=== PATIENT | female | born 1985 ===

== ENCOUNTER 2021-03-14 21:34 | Emergency (ER) | payer OTHER, SELFPAY ==
--- NOTE | ~2021-03-14 | XR_ITS ---
EXAMINATION: XR CHEST CLINICAL INFORMATION: Shortness of breath. Dyspnea on exertion. COMPARISON: None TECHNIQUE: 2 views of the chest were obtained. FINDINGS: Normal cardiomediastinal silhouette. No effusions or pneumothoraces. Grossly normal pattern of pulmonary vasculature. No focal pulmonary consolidation. Minimal multilevel anterior endplate osteophytosis of the thoracic spine. Cardiac loop recorder device is noted in the parasagittal left thoracic region. XR/XR chest 2V IMPRESSION: -No acute cardiopulmonary abnormalities. Lungs clear. -Cardiac loop recorder in place.
[2021-03-14 22:02] VITALS: BP 150/95; PULSE 98; RESP 18; TEMP 36.6; O2SAT 97; BMI 39.4
[2021-03-14 22:23] LABS: MANUAL DIFF FLAG NO
[2021-03-14 22:29] LABS: Basophils Percent Auto 0.3 % (0-2); Eosinophils Absolute Auto 0.2 X10*3/uL (0.0-0.4); Eosinophils Percent Auto 1.3 % (0-4); Hematocrit 40.3 % (37.0-47.0); Hemoglobin 13.4 g/dl (12.0-16.0); Imm Gran Abs Auto 0.09 X10*3/uL (0.00-0.03); Imm Gran Pct Auto 0.8 % (0.0-0.4); Lymphocytes Absolute Auto 2.7 X10*3/uL (1.2-4.9); Lymphocytes Percent Auto 22.5 % (20-40); Mean Corpuscular HGB Conc 33.3 g/dl (31.0-35.0); Mean Corpuscular Hemoglobin 29.6 pg (27.0-33.0); Mean Corpuscular Volume 89.2 fL (80.0-98.0); Mean Platelet Volume 9.4 fL (9.4-12.3); Monocytes Absolute Auto 0.7 X10*3/uL (0.1-1.2); Neutrophils Absolute Auto 8.2 x10*3/uL (2.0-8.3); Neutrophils Percent Auto 69.1 % (45-73); Platelet Count 262 X10*3/uL (160-400); Red Blood Count 4.52 X10*6/uL (4.20-5.50); White Blood Count 11.9 X10*3/uL (4.8-10.8)
[2021-03-14 22:45] LABS: Alanine Aminotransferase 34 U/L (0-31); Albumin Level 4.3 g/dL (3.5-5.0); Alkaline Phosphatase 55 U/L (39-117); Anion Gap 11 (12-20); Aspartate Amino Transferase 17 U/L (5-31); Bilirubin Total 0.3 mg/dL (0.0-1.0); Blood Urea Nitrogen 20 mg/dL (9-16); Calcium 9.1 mg/dL (8.4-10.2); Carbon Dioxide 24 mmol/L (22-29); Chloride 108 mmol/L (96-108); Creatinine Clr Calc Pharmacy 103.8; Estimated Glomerular Filt Rate > 60; Glucose Random 102 mg/dL (60-115); Potassium 3.9 mmol/L (3.3-5.1); Sodium 139 mmol/L (135-145); Total Protein 6.8 g/dL (6.5-8.0)
[2021-03-14 23:04] LABS: Influenza A PCR NEGATIVE (Negative); Influenza B PCR NEGATIVE (Negative); Resp Syncy Virus RNA Qual PCR NEGATIVE (Negative); SARS COV2 PCR INHOUSE NEGATIVE (Negative)
[2021-03-14 23:19] LABS: D Dimer High Sensitivity < 150 NG/ML
--- NOTE | 2021-03-15 00:21 | ED.SOB ---
HPI - SOB/Dyspnea General Chief Complaint: Dyspnea Stated Complaint: ?blood clot Time Seen by Provider: 03/14/21 23:59 Source: patient Mode of arrival: ambulatory Limitations: no limitations History of Present Illness HPI Narrative: Patient comes to emergency room complaining of shortness of breath for 5 days. Patient states that usually she uses an inhaler and her shortness of breath quickly resolves. However, over the last 2 weeks she ran out of her albuterol. Patient states that today she used her daughter's inhaler to help with the shortness of breath, came to the hospital. Patient states that she has had COVID twice in 1 year, after the 2nd round of COVID, her lungs have not been the same. Patient denies chest pain, no tachycardia, no leg/calf pain. Related Data Previous Rx's Medication Instructions Recorded albuterol sulfate 90 mcg/actuation 2 puff INHALATION Q4-6H PRN #8.5 g 03/15/21 aerosol inhaler erythromycin 5 mg/gram (0.5 %) eye 1 appl OPHTHALMIC-RIGHT DAILY #1 g 03/15/21 ointment prednisone 50 mg tablet 50 mg PO DAILY #4 tab 03/15/21 Allergies Allergy/AdvReac Type Severity Reaction Status Date / Time No Known Allergies Allergy Unverified 03/14/21 23:59 Review of Systems Review of Systems: Constitutional : No Weight loss, No Fever, No Chills, No Night Sweats, No Fatigue, No Malaise ENT/Mouth : No Hearing loss, No Ear Pain, No Nasal Congestion, No Sinus Pain, No Hoarseness, No sore throat, No Rhinorrhea, No Swallowing Difficulty Eyes: No Eye Pain, No Swelling, No Redness, No Foreign Body, No Discharge, No Vision Changes Cardiovascular : No Chest Pain, No SOB, No Dyspnea on Exertion, No Orthopnea, No Edema, No Palpitations Respiratory : No Cough, No Sputum, complaining of intermittent Wheezing, No Smoke Exposure, complaining of Dyspnea Gastrointestinal : No Nausea, No Vomiting, No Diarrhea, No Constipation, No abdominal Pain, No Hematochezia, No Melena Genitourinary : no irregular bleeding, No Dysuria, No Urinary Frequency, No Hematuria, No Urinary Incontinence, No Urgency, No Flank Pain, No Urinary Flow Changes, No Hesitancy Musculoskeletal : No joint pain, No Myalgias, No Joint Swelling Skin : No Skin Lesions, No rash Neuro : No Weakness, No Numbness, No Paresthesias, No Loss of Consciousness, No Dizziness, No Headache Psych : No Anxiety/Panic, No Depression, No SI/HI/AH/VH, No Social Issues, Heme/Lymph: No Bruising, No Bleeding,No Lymphadenopathy Endocrine : No Polyuria, No Polydipsia, No Temperature Intolerance [facility] Past Medical History Medical History TIA (transient ischemic attack) Social History Social History Advance Directives: No Advance Directives Information Provided: Yes Patient : No Physical Exam Vital Signs: Vital Signs: Last Vital Signs Temp 97.9 F 03/14/21 22:02 Pulse 98 03/14/21 22:02 Resp 18 03/14/21 22:02 BP 150/95 H 03/14/21 22:02 Pulse Ox 97 03/14/21 22:02 Body Mass Index 39.4 Const: Other: Appearance: Alert. Oriented X3. No acute distress. Eyes: Pupils equal, round and reactive to light. Patient has swelling to the upper right eyelid, no discharge ENT: Pharynx normal. Neck: Normal inspection. Neck supple. No lymph nodes noted. No crepitus CVS: Normal heart rate and rhythm. Pulses normal. Normal S1 and S2 Respiratory: No respiratory distress. Breath sounds normal. No Wheezing. No rales Abdomen: Soft and nontender. No rigidity. No distention. good BS x4 Skin: Skin warm and dry. Normal skin color. Normal skin turgor. Extremities: No lower extremity edema. No calf tenderness bilaterally. No Lacerations. No Rash Neuro: Oriented X 3. No motor deficit. No sensory deficit. Moving all extermities. No slurred speech. Course Course Course Narrative: I discuss the labs and imaging with the patient. Is likely that patient was having asthma exacerbations, improved by albuterol from her daughter. At this time, patient is not wheezing. PE is not suspected. BNP negative. Patient was given the 1st dose of p.o. prednisone. Patient's D-dimer negative. Wells criteria for PE score is 0 MDM - SOB/Dyspnea Lab Data Result diagrams: 03/14/21 22:17 03/14/21 22:17 Labs: Lab Results 03/14/21 03/14/21 03/14/21 Range/Units 22:17 22:17 22:17 WBC 11.9 H (4.8-10.8) X10*3/uL RBC 4.52 (4.20-5.50) X10*6/uL Hgb 13.4 (12.0-16.0) g/dl Hct 40.3 (37.0-47.0) % MCV 89.2 (80.0-98.0) fL MCH 29.6 (27.0-33.0) pg MCHC 33.3 (31.0-35.0) g/dl RDW 13.0 (11.0-16.0) % Plt Count 262 (160-400) X10*3/uL MPV 9.4 (9.4-12.3) fL Immature Gran % (Auto) 0.8 H (0.0-0.4) % Neut % (Auto) 69.1 (45-73) % Lymph % (Auto) 22.5 (20-40) % Perry % (Auto) 6.0 (2-11) % Eos % (Auto) 1.3 (0-4) % Baso % (Auto) 0.3 (0-2) % Lymph # (Auto) 2.7 (1.2-4.9) X10*3/uL Perry # (Auto) 0.7 (0.1-1.2) X10*3/uL Eos # (Auto) 0.2 (0.0-0.4) X10*3/uL Baso # (Auto) 0.0 (0.0-0.2) X10*3/uL Abs Immat Gran (auto) 0.09 H (0.00-0.03) X10*3/uL Absolute Neuts (auto) 8.2 (2.0-8.3) x10*3/uL Absolute Nucleated RBC 0.000 (0.0-0.012) X10*3/uL Nucleated RBC % (auto) 0.0 (0.0-0.2) /100WBC D-Dimer High Sensitivty < 150 NG/ML Sodium 139 (135-145) mmol/L Potassium 3.9 (3.3-5.1) mmol/L Chloride 108 (96-108) mmol/L Carbon Dioxide 24 (22-29) mmol/L Anion Gap 11 L (12-20) BUN 20 H (9-16) mg/dL Creatinine 0.89 (0.5-1.4) mg/dL Estim Creat Clear Calc 103.8 Estimated GFR > 60 Random Glucose 102 (60-115) mg/dL Calcium 9.1 (8.4-10.2) mg/dL Total Bilirubin 0.3 (0.0-1.0) mg/dL AST 17 (5-31) U/L ALT 34 H (0-31) U/L Alkaline Phosphatase 55 (39-117) U/L Total Protein 6.8 (6.5-8.0) g/dL Albumin 4.3 (3.5-5.0) g/dL Influenza Type A (PCR) (Negative) Influenza Type B (PCR) (Negative) RSV RNA Qual (PCR) (Negative) SARS-CoV-2 RNA (RT-PCR) (Negative) 03/14/21 Range/Units 22:17 WBC (4.8-10.8) X10*3/uL RBC (4.20-5.50) X10*6/uL Hgb (12.0-16.0) g/dl Hct (37.0-47.0) % MCV (80.0-98.0) fL MCH (27.0-33.0) pg MCHC (31.0-35.0) g/dl RDW (11.0-16.0) % Plt Count (160-400) X10*3/uL MPV (9.4-12.3) fL Immature Gran % (Auto) (0.0-0.4) % Neut % (Auto) (45-73) % Lymph % (Auto) (20-40) % Perry % (Auto) (2-11) % Eos % (Auto) (0-4) % Baso % (Auto) (0-2) % Lymph # (Auto) (1.2-4.9) X10*3/uL Perry # (Auto) (0.1-1.2) X10*3/uL Eos # (Auto) (0.0-0.4) X10*3/uL Baso # (Auto) (0.0-0.2) X10*3/uL Abs Immat Gran (auto) (0.00-0.03) X10*3/uL Absolute Neuts (auto) (2.0-8.3) x10*3/uL Absolute Nucleated RBC (0.0-0.012) X10*3/uL Nucleated RBC % (auto) (0.0-0.2) /100WBC D-Dimer High Sensitivty NG/ML Sodium (135-145) mmol/L Potassium (3.3-5.1) mmol/L Chloride (96-108) mmol/L Carbon Dioxide (22-29) mmol/L Anion Gap (12-20) BUN (9-16) mg/dL Creatinine (0.5-1.4) mg/dL Estim Creat Clear Calc Estimated GFR Random Glucose (60-115) mg/dL Calcium (8.4-10.2) mg/dL Total Bilirubin (0.0-1.0) mg/dL AST (5-31) U/L ALT (0-31) U/L Alkaline Phosphatase (39-117) U/L Total Protein (6.5-8.0) g/dL Albumin (3.5-5.0) g/dL Influenza Type A (PCR) NEGATIVE (Negative) Influenza Type B (PCR) NEGATIVE (Negative) RSV RNA Qual (PCR) NEGATIVE (Negative) SARS-CoV-2 RNA (RT-PCR) NEGATIVE (Negative) Imaging Data Chest x-ray: Radiologist's impression: FINDINGS: Normal cardiomediastinal silhouette. No effusions or pneumothoraces. Grossly normal pattern of pulmonary vasculature. No focal pulmonary consolidation. Minimal multilevel anterior endplate osteophytosis of the thoracic spine. Cardiac loop recorder device is noted in the parasagittal left thoracic region. XR/XR chest 2V IMPRESSION: -No acute cardiopulmonary abnormalities. Lungs clear. -Cardiac loop recorder in place. Discharge Plan Discharge Clinical Impression: Dyspnea, Blepharitis of eyelid of right eye Patient Disposition: Home, Self-Care Instructions: Dyspnea (ED) Additional Instructions: Please follow-up with your primary care physician tomorrow. If you have any worsening or new symptoms, please return to the emergency room or call 911 Prescriptions: New albuterol sulfate 90 mcg/actuation HFA aerosol inhaler 2 puff inhalation Q4-6H PRN (Reason: shortness of breath or wheezing) Qty: 8.5 RF: 1 prednisone 50 mg tablet 50 mg PO DAILY Qty: 4 RF: 0 erythromycin 5 mg/gram (0.5 %) ointment 1 appl ophthalmic-Right DAILY Qty: 1 RF: 0
[2021-03-15 00:31] LABS: B Type Natriuretic Peptide 26 pg/mL (<100)
[2021-03-15 01:19] VITALS: BP 148/62; PULSE 98; RESP 18; O2SAT 97
--- NOTE | 2021-03-15 02:09 | PC.NURSE ---
pt refusing prednisone and med was returned. No iv's placed. pt verbalized u/s of d/c instructions and left ed ambulatory with steady even gait to .
== END 2021-03-15 02:15 | disposition home or self-care (01) ==
PROVIDERS: Student in an Organized Health Care Education/Training Program; Emergency Provider Emergency Medicine
DX: H01.003 Unspecified blepharitis right eye, unspecified eyelid (principal); R06.00 Dyspnea, unspecified; R06.02 Shortness of breath; Z79.899 Other long term (current) drug therapy; Z20.822 Contact with and (suspected) exposure to COVID-19
CPT/HCPCS: 0241U; 36415; 71046; 80053; 83880; 85025; 85379; 99283

== ENCOUNTER 2023-03-22 20:38 | Emergency (ER) | payer OTHER, SELFPAY ==
--- NOTE | 2023-03-22 | ECG_ITS ---
Test Reason : dizziness Blood Pressure : / mmHG Vent. Rate : 095 BPM Atrial Rate : 095 BPM P-R Int : 142 ms QRS Dur : 080 ms QT Int : 382 ms P-R-T Axes : 051 017 001 degrees QTc Int : 480 ms Normal sinus rhythm Possible Anterior infarct , age undetermined Abnormal ECG No previous ECGs available Referred By: Generic ED Physician Electronically Signed By:KWESI LIN
--- NOTE | ~2023-03-22 | US_ITS ---
EXAMINATION: US ABDOMEN LIMITED CLINICAL INFORMATION: Pain.. COMPARISON: None available. TECHNIQUE: Real-time imaging of the right upper quadrant abdominal viscera. FINDINGS: PANCREAS: Normal. LIVER: Normal. The liver is normal in size. The liver contour is normal. Parenchymal echogenicity is normal. No focal hepatic lesion. There is no intrahepatic biliary duct dilatation seen. GALLBLADDER: The gallbladder is normally distended. There is a moderate amount of faintly echogenic nonshadowing material within the gallbladder. No shadowing gallbladder calculi are seen. There is no gallbladder wall thickening or pericholecystic fluid. COMMON BILE DUCT: Normal in caliber measuring 0.5 cm in diameter. RIGHT KIDNEY: Normal. No hydronephrosis. No renal calculi or focal parenchymal lesions. The kidney measures 11.9 cm in maximum dimension. FREE FLUID: None. US/US abdomen limited IMPRESSION: Faintly echogenic nonshadowing material within the gallbladder most consistent with echogenic bile/sludge. No shadowing gallbladder calculi. No current evidence for cholecystitis or biliary dilatation.
[2023-03-22 21:03] VITALS: BP 160/87; PULSE 89; RESP 16; TEMP 36; O2SAT 100; BMI 29.0
[2023-03-22 21:33] LABS: MANUAL DIFF FLAG NO
[2023-03-22 21:35] LABS: Basophils Percent Auto 0.4 % (0-2); Eosinophils Absolute Auto 0.2 X10*3/uL (0.0-0.4); Hematocrit 39.7 % (37.0-47.0); Hemoglobin 13.6 g/dl (12.0-16.0); Imm Gran Abs Auto 0.03 X10*3/uL (0.00-0.03); Imm Gran Pct Auto 0.3 % (0.0-0.4); Lymphocytes Absolute Auto 1.4 X10*3/uL (1.2-4.9); Lymphocytes Percent Auto 14.4 % (20-40); Mean Corpuscular HGB Conc 34.3 g/dl (31.0-35.0); Mean Corpuscular Hemoglobin 30.4 pg (27.0-33.0); Mean Corpuscular Volume 88.8 fL (80.0-98.0); Mean Platelet Volume 9.7 fL (9.4-12.3); Monocytes Absolute Auto 0.4 X10*3/uL (0.1-1.2); Monocytes Percent Auto 4.4 % (2-11); Neutrophils Absolute Auto 7.9 x10*3/uL (2.0-8.3); Neutrophils Percent Auto 78.5 % (45-73); Platelet Count 220 X10*3/uL (160-400); Red Blood Count 4.47 X10*6/uL (4.20-5.50); Red Cell Distribution Width 12.3 % (11.0-16.0)
[2023-03-22 21:50] LABS: Alanine Aminotransferase 32 U/L (0-31); Albumin Level 4.4 g/dL (3.5-5.0); Alkaline Phosphatase 53 U/L (39-117); Anion Gap 14 (12-20); Aspartate Amino Transferase 23 U/L (5-31); Bilirubin Total 0.4 mg/dL (0.0-1.0); Blood Urea Nitrogen 11 mg/dL (9-16); Calcium 9.6 mg/dL (8.4-10.2); Carbon Dioxide 21 mmol/L (22-29); Chloride 110 mmol/L (96-108); Creatinine Clr Calc Pharmacy 108.7; Estimated Glomerular Filt Rate > 60; Glucose Random 146 mg/dL (60-115); Potassium 3.7 mmol/L (3.3-5.1); Sodium 141 mmol/L (135-145); Total Protein 7.3 g/dL (6.5-8.0)
[2023-03-22 22:11] LABS: Influenza A PCR NEGATIVE (Negative); Influenza B PCR NEGATIVE (Negative); Resp Syncy Virus RNA Qual PCR NEGATIVE (Negative); SARS COV2 PCR INHOUSE NEGATIVE (Negative)
[2023-03-22 22:42] VITALS: BP 140/94; PULSE 86; RESP 16; TEMP 36.4; O2SAT 99
[2023-03-22 23:19] LABS: Lipase 18 U/L (8-78)
[2023-03-22] MEDS: 0.9 % Sodium Chloride 1,000 ML 999 ML IV (23:42)
[2023-03-22] MEDS: ondansetron HCL 4 MG/2 ML VIAL IVPUSH (23:43)
--- NOTE | 2023-03-22 23:48 | PC.NURSE ---
pt vomiting at this time, episodes of sweating and feeling like her heart is racing. IVF started, zofran given
[2023-03-23 00:07] LABS: HCG Quantitative < 2 mIU/mL
--- NOTE | 2023-03-23 00:42 | ED_ITS ---
HPI - General Adult General Chief complaint: General Medical Stated complaint: vomiting, dehydrated Time Seen by Provider: 03/22/23 22:46 Source: patient and RN notes reviewed Mode of arrival: ambulatory Limitations: no limitations History of Present Illness HPI narrative: This is a 37-year-old female, with a history of gastroparesis, presenting to the emergency department with complaints of nausea and vomiting. Patient states that her primary care physician prescribed her Suboxone for gastroparesis, she took her 1st dose today and felt increased fatigue, sweats, nausea and vomiting. Patient reports that she previously had an opioid use disorder, and states that she felt like she was as she used to feel when she was high. Patient reports that she went to her primary care office and was given IV fluids. She states that she started to feel better however reports that 7:00 pm she started to vomit and have nausea again. She endorses some epigastric pain Related Data Previous Rx's Medication Instructions Recorded albuterol sulfate 90 mcg/actuation 2 puff inhalation Q4-6H PRN 03/15/21 aerosol inhaler shortness of breath or wheezing #8.5 grams erythromycin 5 mg/gram (0.5 %) eye 1 appl ophthalmic-Right DAILY #1 g 03/15/21 ointment prednisone 50 mg tablet 50 mg PO DAILY #4 tabs 03/15/21 ondansetron 4 mg disintegrating 4 mg PO Q6H PRN nausea and 03/23/23 tablet vomiting #14 tabs Allergies Allergy/AdvReac Type Severity Reaction Status Date / Time amoxicillin Allergy Unknown Verified 03/22/23 21:03 erythromycin base Allergy Unknown Verified 03/22/23 21:03 gluten Allergy Unknown Verified 03/22/23 21:03 alex Allergy Unknown Verified 03/22/23 21:03 peanut Allergy Unknown Verified 03/22/23 21:03 Penicillins Allergy Anaphylaxis Verified 03/22/23 21:03 raspberry Allergy Unknown Verified 03/22/23 21:03 Yeast Allergy Gastrointestinal Verified 03/22/23 21:03 Upset Review of Systems 2 Review of Systems: Yes all other systems are reviewed and are negative Constitutional: Constitutional: Reports as per [facility] Past Medical History Medical History TIA (transient ischemic attack) Social History Social History Smoked in Last 30 Days: No Use of substances other than those prescribed or required for medical reasons: Yes Substance Use Type: Marijuana Substance Use Frequency: Daily Last Used Substance: Hours (ago) Advance Directives: No Advance Directives Information Provided: Yes Patient : No Physical Exam ED Vital Signs: Vital Signs - 24 hr 03/22/23 21:03 03/22/23 22:42 03/23/23 01:51 Temperature 96.8 F 97.5 F Pulse Rate 89 86 79 Respiratory Rate 16 16 14 Blood Pressure 160/87 H 140/94 H 131/72 Pulse Oximetry 100 99 96 Oxygen Delivery Method Room Air Room Air Room Air BMI result Body Mass Index 29.0 Const General: cooperative, comfortable and no acute distress Orientation/consciousness: patient oriented x3 Limitations: no limitations HENMT Head: Yes normal to inspection, Yes normocephalic and Yes atraumatic Ears: hearing grossly normal bilaterally General nose exam: Normal external nose present Face and sinus: Yes normal facial exam Mouth: Normal oral and palatal mucosa present, oropharynx normal and moist mucous membranes Throat: Yes posterior oropharynx normal Eyes General: appearance normal, both eyes and all related structures Eyelids: Yes eyelids normal Conjunctivae: conjunctivae normal Sclerae: sclerae normal Pupils: Equal, round and reactive pupils present EOM: EOMs intact bilaterally Neck Neck: Yes normal visual inspection, Yes full ROM and Yes no lymphadenopathy Lymphatic: no lymphadenopathy noted Chest Chest palpation & inspection: normal inspection of the chest Resp Effort & Inspection: normal respiratory effort and able to speak in complete sentences Auscultation: clear to auscultation bilaterally, no crackles, no rales, no rhonchi and no wheezes Cardio Rate: regular rate Rhythm: regular rhythm Heart sounds: S1 normal heart sound present and S2 normal heart sound present GI Other: Abdomen is soft, with mild tenderness palpation in the epigastrium and right upper quadrant Inspection: Yes normal to inspection Skin General skin exam: no rashes or lesions noted Trauma: no lacerations or abrasions Wounds: no wounds Neuro General: patient oriented x3 and moves all extremities Cranial nerves: Yes Equal, round and reactive pupils present Extrem General: Yes normal to inspection Right upper extremity: normal to inspection Left upper extremity: normal to inspection Right lower extremity: normal to inspection Left lower extremity: normal to inspection Course Reevaluation(s) Reevaluation #1: Leukocytosis, H&H stable, electrolytes within normal limits. ALT slightly elevated at 30, beta quant less than 2. Viral swabs negative. Patient has mild tenderness is in the epigastrium and right upper quadrant. Given findings, will obtain ultrasound for further evaluation. Patient feeling much better after receiving IV fluids and IV Zofran. US RUQ ordered given tenderness on exam. Will continue to monitor Time: 00:57 Reevaluation #2: US RUQ revealing sludge, no stones or inflammation/obstruction. Discussed findings with pt. Symptoms likely due to suboxone medication side effect. Discussed with pt to f/u with her PCP and to hold off on taking suboxone until she speaks with her. Pt given return precautions. Pt understands and agrees with plan. Pt stable for d/c. Medications Administered Discontinued Medications Generic Name Dose Route Start Last Admin Trade Name Freq PRN Reason Stop Dose Admin Sodium Chloride 1,000 mls @ 999 mls/hr 03/22/23 23:05 03/23/23 00:42 Ns IV 03/23/23 00:05 Infused .Q1H1M ONE Infusion Ondansetron HCl 4 mg 03/22/23 23:05 03/22/23 23:43 Ondansetron Hcl 4 Mg/2 Ml Vial IVPUSH 03/22/23 23:06 4 mg ONCE ONE Administration Medical Decision Making Medical Decision Making MDM Narrative: 37-year-old female, with a history of gastroparesis, presenting to the emergency department complaints of acute nausea and vomiting after taking 1st dose of Suboxone today. Patient states that she was seen by her primary care was been following her for gastroparesis. She states that her primary care physician put her on Suboxone to treat for pain. She took a 1/4th of an 8mg Suboxone film, several hours later, she felt dizzy, nauseous, on sweating, and her pupils were pinpoint. She describes this as a similar feeling she used to have when she was abusing opioids. She has had ongoing nausea and vomiting since. On arrival, patient actively vomiting, pale, blood pressure 160/87, patient nontoxic appearing. Plan: Labs, EKG, viral swabs, IV fluids, IV Zofran Differential Diagnosis Differential Diagnoses: The differential diagnosis associated with the presentation includes Gastroenteritis, gastritis, cholelithiasis, adverse medication reaction Admission/Observation Consideration of admission/observation: Escalation of care including admission/observation considered Patient would have been admitted to the hospital had her work up had any findings where hospital admission was appropriate and her clinical presentation warranted hospital admission. Lab Data [facility] Lab Attestation statement: I reviewed the patient's lab results. See above MDM 03/22/23 21:27 03/22/23 21:27 Labs: Lab Results 03/22/23 Range/Units 21:27 WBC 10.0 (4.8-10.8) X10*3/uL RBC 4.47 (4.20-5.50) X10*6/uL Hgb 13.6 (12.0-16.0) g/dl Hct 39.7 (37.0-47.0) % MCV 88.8 (80.0-98.0) fL MCH 30.4 (27.0-33.0) pg MCHC 34.3 (31.0-35.0) g/dl RDW 12.3 (11.0-16.0) % Plt Count 220 (160-400) X10*3/uL MPV 9.7 (9.4-12.3) fL Immature Gran % (Auto) 0.3 (0.0-0.4) % Neut % (Auto) 78.5 H (45-73) % Lymph % (Auto) 14.4 L (20-40) % Richardson % (Auto) 4.4 (2-11) % Eos % (Auto) 2.0 (0-4) % Baso % (Auto) 0.4 (0-2) % Lymph # (Auto) 1.4 (1.2-4.9) X10*3/uL Richardson # (Auto) 0.4 (0.1-1.2) X10*3/uL Eos # (Auto) 0.2 (0.0-0.4) X10*3/uL Baso # (Auto) 0.0 (0.0-0.2) X10*3/uL Abs Immat Gran (auto) 0.03 (0.00-0.03) X10*3/uL Absolute Neuts (auto) 7.9 (2.0-8.3) x10*3/uL Absolute Nucleated RBC 0.000 (0.0-0.012) X10*3/uL Nucleated RBC % (auto) 0.0 (0.0-0.2) /100WBC Sodium 141 (135-145) mmol/L Potassium 3.7 (3.3-5.1) mmol/L Chloride 110 H (96-108) mmol/L Carbon Dioxide 21 L (22-29) mmol/L Anion Gap 14 (12-20) BUN 11 (9-16) mg/dL Creatinine 0.71 (0.5-1.4) mg/dL Estim Creat Clear Calc 108.7 Estimated GFR > 60 Random Glucose 146 H (60-115) mg/dL Calcium 9.6 (8.4-10.2) mg/dL Total Bilirubin 0.4 (0.0-1.0) mg/dL AST 23 (5-31) U/L ALT 32 H (0-31) U/L Alkaline Phosphatase 53 (39-117) U/L Troponin I High Sens < 2.7 (<3.5-17.0) ng/L Total Protein 7.3 (6.5-8.0) g/dL Albumin 4.4 (3.5-5.0) g/dL Lipase 18 (8-78) U/L Beta HCG, Quant < 2 mIU/mL Influenza Type A (PCR) NEGATIVE (Negative) Influenza Type B (PCR) NEGATIVE (Negative) RSV RNA Qual (PCR) NEGATIVE (Negative) SARS-CoV-2 RNA (RT-PCR) NEGATIVE (Negative) Independent Interpretation I performed an independent interpretation of an: EKG Interpretation: EKG, normal sinus rhythm at a ventricular rate of 95 beats per minute, AL interval 142, QTC 480, no ST elevation or depression Radiology Impression Discussion of test interpretation with radiology: I have reviewed the radiologist's reading. Radiologist Impression: EXAMINATION: US ABDOMEN LIMITED CLINICAL INFORMATION: Pain.. COMPARISON: None available. TECHNIQUE: Real-time imaging of the right upper quadrant abdominal viscera. FINDINGS: PANCREAS: Normal. LIVER: Normal. The liver is normal in size. The liver contour is normal. Parenchymal echogenicity is normal. No focal hepatic lesion. There is no intrahepatic biliary duct dilatation seen. GALLBLADDER: The gallbladder is normally distended. There is a moderate amount of faintly echogenic nonshadowing material within the gallbladder. No shadowing gallbladder calculi are seen. There is no gallbladder wall thickening or pericholecystic fluid. COMMON BILE DUCT: Normal in caliber measuring 0.5 cm in diameter. RIGHT KIDNEY: Normal. No hydronephrosis. No renal calculi or focal parenchymal lesions. The kidney measures 11.9 cm in maximum dimension. FREE FLUID: None. US/US abdomen limited IMPRESSION: Faintly echogenic nonshadowing material within the gallbladder most consistent with echogenic bile/sludge. No shadowing gallbladder calculi. No current evidence for cholecystitis or biliary dilatation. Dictated By: Yonatan Engle Discharge Plan Discharge Clinical Impression: Adverse drug reaction, Nausea & vomiting Patient Disposition: Home, Self-Care Instructions: Acute Nausea and Vomiting (ED) Additional Instructions: You presented to the emergency department due to nausea and vomiting. This is likely due to an adverse medication reaction from Suboxone. Please stop taking this medication, follow-up with your primary care physician. Your labs and ultrasound are reassuring. They did find some sludge in your gallbladder. Follow-up with your GI specialist Please continue did drink plenty of fluids get plenty of rest. Take Zofran as directed as needed for symptoms. Stick to a bland diet over the next couple of days. If any new or worsening symptoms occur including but not limited to worsening abdominal pain, chest pain, shortness breath, please return for re-evaluation. Prescriptions: New ondansetron 4 mg tablet,disintegrating 4 mg PO Q6H PRN (Reason: nausea and vomiting) Qty: 14 0RF No Action albuterol sulfate 90 mcg/actuation HFA aerosol inhaler 2 puff inhalation Q4-6H PRN (Reason: shortness of breath or wheezing) Qty: 8.5 1RF prednisone 50 mg tablet 50 mg PO DAILY Qty: 4 0RF erythromycin 5 mg/gram (0.5 %) ointment 1 appl ophthalmic-Right DAILY Qty: 1 0RF Interventions: ED Discharge Assessment Last Done: 03/23/23 02:39 Discharge Date/Time: 03/23/23 02:40
--- NOTE | 2023-03-23 01:14 | PC.NURSE ---
pt off unit to U/S
[2023-03-23 01:34] LABS: Troponin-I High Sensitivity < 2.7 ng/L (<3.5-17.0)
[2023-03-23 01:51] VITALS: BP 131/72; PULSE 79; RESP 14; O2SAT 96
[2023-03-23 02:37] VITALS: BP 137/83; PULSE 78; RESP 16; TEMP 36.4; O2SAT 99
== END 2023-03-23 02:40 | disposition home or self-care (01) ==
PROVIDERS: Physician Assistant Medical; Emergency Provider Emergency Medicine
DX: R11.2 Nausea with vomiting, unspecified (principal); T40.495A Adverse effect of other synthetic narcotics, initial encounter; Y92.9 Unspecified place or not applicable; K31.84 Gastroparesis; R53.83 Other fatigue; Z20.822 Contact with and (suspected) exposure to COVID-19; Z20.828 Contact with and (suspected) exposure to other viral communicable diseases; Z79.899 Other long term (current) drug therapy; Z86.73 Personal history of transient ischemic attack (TIA), and cerebral infarction without residual deficits
CPT/HCPCS: 0241U; 76705; 80053; 83690; 84484; 84702; 85025; 93005; 96361; 96374; 99284; 99285; J2405

== ENCOUNTER → 2023-03-22 21:21 | Outpatient (BNV) | payer OTHER, SELFPAY | PROVIDERS: Emergency Provider Emergency Medicine; Visit Provider Internal Medicine | DX: R94.31 Abnormal electrocardiogram [ECG] [EKG] (principal); R42 Dizziness and giddiness | CPT/HCPCS: 93010 ==

== ENCOUNTER 2023-04-02 08:55 | Emergency (ER) | payer OTHER, SELFPAY ==
[2023-04-02 09:11] VITALS: BP 138/96; PULSE 116; RESP 18; TEMP 36.7; O2SAT 96; BMI 27.7
[2023-04-02] MEDS: Ondansetron ODT 4 MG TAB.RAPDIS TRANSLINGU (09:21)
[2023-04-02 09:33] LABS: MANUAL DIFF FLAG NO
[2023-04-02 09:35] LABS: Basophils Percent Auto 0.6 % (0-2); Eosinophils Absolute Auto 0.1 X10*3/uL (0.0-0.4); Hematocrit 44.7 % (37.0-47.0); Hemoglobin 15.5 g/dl (12.0-16.0); Imm Gran Abs Auto 0.03 X10*3/uL (0.00-0.03); Imm Gran Pct Auto 0.4 % (0.0-0.4); Lymphocytes Absolute Auto 1.7 X10*3/uL (1.2-4.9); Lymphocytes Percent Auto 23.8 % (20-40); Mean Corpuscular HGB Conc 34.7 g/dl (31.0-35.0); Mean Corpuscular Hemoglobin 30.5 pg (27.0-33.0); Mean Corpuscular Volume 87.8 fL (80.0-98.0); Mean Platelet Volume 9.9 fL (9.4-12.3); Monocytes Absolute Auto 0.6 X10*3/uL (0.1-1.2); Neutrophils Absolute Auto 4.7 x10*3/uL (2.0-8.3); Neutrophils Percent Auto 65.2 % (45-73); Platelet Count 258 X10*3/uL (160-400); Red Blood Count 5.09 X10*6/uL (4.20-5.50); Red Cell Distribution Width 12.6 % (11.0-16.0); White Blood Count 7.1 X10*3/uL (4.8-10.8)
[2023-04-02 09:47] LABS: COVID-19 Test Negative (Negative); IDNOW Serial# BCCEAD1C
[2023-04-02 09:51] LABS: Alanine Aminotransferase 25 U/L (0-31); Albumin Level 4.9 g/dL (3.5-5.0); Alkaline Phosphatase 58 U/L (39-117); Anion Gap 15 (12-20); Aspartate Amino Transferase 17 U/L (5-31); Bilirubin Direct 0.3 mg/dL (0.0-0.5); Bilirubin Total 0.8 mg/dL (0.0-1.0); Blood Urea Nitrogen 11 mg/dL (9-16); Calcium 10.4 mg/dL (8.4-10.2); Carbon Dioxide 26 mmol/L (22-29); Chloride 104 mmol/L (96-108); Creatinine Clr Calc Pharmacy 100.7; Estimated Glomerular Filt Rate > 60; Glucose Random 112 mg/dL (60-115); Lipase 20 U/L (8-78); Sodium 141 mmol/L (135-145); Total Protein 8.1 g/dL (6.5-8.0)
[2023-04-02 09:53] VITALS: BP 137/88; PULSE 88
[2023-04-02 09:54] VITALS: BP 134/100; PULSE 97
--- NOTE | 2023-04-02 09:58 | ED_ITS ---
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 She is in the middle of a workup from [facility]. Onset (ago): year(s) Severity: moderate Related Data Previous Rx's Medication Instructions Recorded albuterol sulfate 90 mcg/actuation 2 puff inhalation Q4-6H PRN 03/15/21 aerosol inhaler shortness of breath or wheezing #8.5 grams erythromycin 5 mg/gram (0.5 %) eye 1 appl ophthalmic-Right DAILY #1 g 03/15/21 ointment prednisone 50 mg tablet 50 mg PO DAILY #4 tabs 03/15/21 ondansetron 4 mg disintegrating 4 mg PO Q6H PRN nausea and 03/23/23 tablet vomiting #14 tabs ondansetron 4 mg disintegrating 4 mg PO Q8H 4 days #12 tabs 04/02/23 tablet Allergies Allergy/AdvReac Type Severity Reaction Status Date / Time amoxicillin Allergy Unknown Verified 03/22/23 21:03 erythromycin base Allergy Unknown Verified 03/22/23 21:03 gluten Allergy Unknown Verified 03/22/23 21:03 alex Allergy Unknown Verified 03/22/23 21:03 peanut Allergy Unknown Verified 03/22/23 21:03 Penicillins Allergy Anaphylaxis Verified 03/22/23 21:03 raspberry Allergy Unknown Verified 03/22/23 21:03 Yeast Allergy Gastrointestinal Verified 03/22/23 21:03 Upset metoclopramide [From Reglan] AdvReac Shakiness Verified 04/02/23 10:38 Review of Systems 2 Review of Systems: Yes all other systems are reviewed and are negative Neurologic: Denies Sensory deficit (Neuro) [facility] Past Medical History Medical History TIA (transient ischemic attack) Social History Social History Smoked in Last 30 Days: No Use of substances other than those prescribed or required for medical reasons: Yes Substance Use Type: Marijuana Advance Directives: No Patient : No Physical Exam ED Vital Signs: Vital Signs - 24 hr 04/02/23 09:11 12/19/23 09:53 04/02/23 09:54 Temperature 98.0 F Pulse Rate 116 H 88 97 Respiratory Rate 18 Blood Pressure 138/96 H 137/88 134/100 H Pulse Oximetry 96 Oxygen Delivery Method Room Air 04/02/23 10:00 04/02/23 11:59 Temperature 98.4 F Pulse Rate 113 H 94 Respiratory Rate 13 Blood Pressure 133/100 H 115/77 Pulse Oximetry 100 Oxygen Delivery Method Room Air BMI result Body Mass Index 27.7 Const General: healthy appearing Nutritional Appearance: average body habitus Orientation/consciousness: oriented to person and patient oriented x3 Limitations: no limitations HENMT Head: Yes normal to inspection Ears: external ears normal General nose exam: Normal external nose present Mouth: Normal oral and palatal mucosa present and oropharynx normal Throat: Yes posterior oropharynx normal Eyes General: appearance normal, both eyes and all related structures Neck Neck: Yes normal visual inspection Chest Chest palpation & inspection: normal inspection of the chest Resp Auscultation: clear to auscultation bilaterally Cardio Jugular venous distension: no JVD Rate: regular rate Rhythm: regular rhythm Heart sounds: S1 normal heart sound present and S2 normal heart sound present GI Inspection: Yes normal to inspection Palpation (GI): Soft to palpation, nontender and No hepatosplenomegaly present Auscultation: normal bowel sounds General: Yes no CVA tenderness Back/Spine/Pelvis Back: no CVA tenderness Skin General skin exam: no rashes or lesions noted Neuro General: oriented to person and patient oriented x3 Cranial nerves: Yes CN's II-XII intact bilaterally Motor exam (neuro): 5/5 motor strength present throughout Sensory Exam: No Sensory deficit (Neuro) Extrem General: Yes normal to inspection Psych Appearance: grossly normal Course Reevaluation(s) Reevaluation #1: No evidence of electrolyte abnormality, patient is dehydrated by UA sg. Will dc home after hydration Time: 12:51 Medications Administered Discontinued Medications Generic Name Dose Route Start Last Admin Trade Name Freq PRN Reason Stop Dose Admin Sodium Chloride 500 mls @ 500 mls/hr 04/02/23 10:45 04/02/23 12:49 Ns IV 04/02/23 11:44 Infused .Q1H ATUL Infusion Ondansetron HCl 4 mg 04/02/23 09:19 04/02/23 09:21 Ondansetron Odt 4 Mg Tab.Samantha TRANSLINGU 04/02/23 09:20 4 mg ONCE ONE Administration Ondansetron HCl 4 mg 04/02/23 10:39 04/02/23 11:07 Ondansetron Hcl 4 Mg/2 Ml Vial IVPUSH 04/02/23 10:40 4 mg ONCE ONE Administration Medical Decision Making Differential Diagnosis Differential Diagnoses: The differential diagnosis associated with the presentation includes (gastroparesis, vomiting, electrolyte abnormality, dehydration, hypothyroidism) Admission/Observation Consideration of admission/observation: Escalation of care including admission/observation considered (upon arrival patient was considered for admission) Lab Data 04/02/23 09:28 04/02/23 09:28 Labs: Lab Results 04/02/23 04/02/23 Range/Units 09:28 12:28 WBC 7.1 (4.8-10.8) X10*3/uL RBC 5.09 (4.20-5.50) X10*6/uL Hgb 15.5 (12.0-16.0) g/dl Hct 44.7 (37.0-47.0) % MCV 87.8 (80.0-98.0) fL MCH 30.5 (27.0-33.0) pg MCHC 34.7 (31.0-35.0) g/dl RDW 12.6 (11.0-16.0) % Plt Count 258 (160-400) X10*3/uL MPV 9.9 (9.4-12.3) fL Immature Gran % (Auto) 0.4 (0.0-0.4) % Neut % (Auto) 65.2 (45-73) % Lymph % (Auto) 23.8 (20-40) % [place] % (Auto) 9.0 (2-11) % Eos % (Auto) 1.0 (0-4) % Baso % (Auto) 0.6 (0-2) % Lymph # (Auto) 1.7 (1.2-4.9) X10*3/uL [place] # (Auto) 0.6 (0.1-1.2) X10*3/uL Eos # (Auto) 0.1 (0.0-0.4) X10*3/uL Baso # (Auto) 0.0 (0.0-0.2) X10*3/uL Abs Immat Gran (auto) 0.03 (0.00-0.03) X10*3/uL Absolute Neuts (auto) 4.7 (2.0-8.3) x10*3/uL Absolute Nucleated RBC 0.000 (0.0-0.012) X10*3/uL Nucleated RBC % (auto) 0.0 (0.0-0.2) /100WBC Sodium 141 (135-145) mmol/L Potassium 4.0 (3.3-5.1) mmol/L Chloride 104 (96-108) mmol/L Carbon Dioxide 26 (22-29) mmol/L Anion Gap 15 (12-20) BUN 11 (9-16) mg/dL Creatinine 0.75 (0.5-1.4) mg/dL Estim Creat Clear Calc 100.7 Estimated GFR > 60 Random Glucose 112 (60-115) mg/dL Calcium 10.4 H D (8.4-10.2) mg/dL Phosphorus 2.5 L (2.7-4.5) mg/dL Magnesium 2.1 (1.6-2.6) mg/dL Total Bilirubin 0.8 (0.0-1.0) mg/dL Direct Bilirubin 0.3 (0.0-0.5) mg/dL AST 17 (5-31) U/L ALT 25 (0-31) U/L Alkaline Phosphatase 58 (39-117) U/L Total Protein 8.1 H (6.5-8.0) g/dL Albumin 4.9 (3.5-5.0) g/dL Lipase 20 (8-78) U/L TSH 1.15 (0.32-4.0) uIU/mL Urine Color Dark Yellow Urine Appearance Clear Urine pH 6.0 (5.0-9.0) Ur Specific Kathleen >= 1.030 H (1.005-1.025) Urine Protein 100 (2+) H (Neg-Trace) mg/dL Urine Glucose (UA) Negative (Negative) mg/dL Urine Ketones >=160 (Negative) mg/dL Urine Blood Negative (Negative) Urine Nitrite Negative (Negative) Ur Leukocyte Esterase Negative (Negative) Urine RBC 3-5 H (0-2) /HPF Urine WBC 0-5 (0-5) /HPF Ur Squamous Epith Cells 3-5 (0-2) /HPF Urine Bacteria Trace (None Seen) Hyaline Casts 0-2 (0-2) /LPF Urine Test NEGATIVE (NEGATIVE) COVID-19 (CHARO) Negative (Negative) COVID-19 Clin Com See Note Independent Historian Clinical information obtained from an independent historian. History obtained from or confirmed by: Spouse Tests considered The following testing was considered but not selected: CT of abdomen considered but patient with nonfocal abdominal exam and has had a large workup Chronic Conditions Patient?s care impacted by: Other (GI wasting) Discharge Plan Discharge Clinical Impression: Acute dehydration, Vomiting Patient Disposition: Home, Self-Care Prescriptions: New ondansetron 4 mg tablet,disintegrating 4 mg PO Q8H 4 Days Qty: 12 0RF No Action albuterol sulfate 90 mcg/actuation HFA aerosol inhaler 2 puff inhalation Q4-6H PRN (Reason: shortness of breath or wheezing) Qty: 8.5 1RF prednisone 50 mg tablet 50 mg PO DAILY Qty: 4 0RF erythromycin 5 mg/gram (0.5 %) ointment 1 appl ophthalmic-Right DAILY Qty: 1 0RF ondansetron 4 mg tablet,disintegrating 4 mg PO Q6H PRN (Reason: nausea and vomiting) Qty: 14 0RF Referrals: Savannah Tam PA [Primary Care Provider] - 3 days
[2023-04-02 10:00] VITALS: BP 133/100; PULSE 113
[2023-04-02 10:17] LABS: Magnesium 2.1 mg/dL (1.6-2.6); Phosphorus 2.5 mg/dL (2.7-4.5)
[2023-04-02 10:37] LABS: Thyroid Stimulating Hormone 1.15 uIU/mL (0.32-4.0)
[2023-04-02] MEDS: 0.9 % Sodium Chloride 500 ML IV (11:07)
[2023-04-02] MEDS: ondansetron HCL 4 MG/2 ML VIAL IVPUSH (11:07)
--- NOTE | 2023-04-02 11:49 | PC.NURSE ---
pt awaiting urine. reports she arreola snot have to urinate yet
[2023-04-02 11:59] VITALS: BP 115/77; PULSE 94; RESP 13; TEMP 36.9; O2SAT 100
[2023-04-02 12:37] LABS: Appearance Urine Clear; Color Urine Dark Yellow; Glucose Urine UA Negative (Negative); Leukocyte Esterase Urine Negative (Negative); Nitrite Urine Negative (Negative); Specific Gravity - Urine >= 1.030 (1.005-1.025); UMIC TRIGGER UACC YES; Urine Blood Negative (Negative); Urine Ketones >=160 mg/dL (Negative); Urine Protein 100 (2+) mg/dL (Neg-Trace)
[2023-04-02 12:38] LABS: UPreg QC Valid YES; Urine Pregnancy NEGATIVE (NEGATIVE)
[2023-04-02 12:39] LABS: Bacteria Urine Trace (None Seen); Hyaline Casts Urine 0-2 /LPF (0-2); WBC Urine 0-5 /HPF (0-5)
== END 2023-04-02 13:19 | disposition home or self-care (01) ==
PROVIDERS: Emergency Provider Emergency Medicine; PCP Physician Assistant
DX: E86.0 Dehydration (principal); R11.2 Nausea with vomiting, unspecified; R20.2 Paresthesia of skin; Z11.52 Encounter for screening for COVID-19; Z20.822 Contact with and (suspected) exposure to COVID-19; Z79.899 Other long term (current) drug therapy
CPT/HCPCS: 36415; 80048; 80076; 81001; 81025; 83690; 83735; 84100; 84443; 85025; 87635; 96361; 96374; 99284; J2405

== ENCOUNTER 2023-08-23 12:29 | Outpatient (AMB) | payer OTHER, SELFPAY ==
--- NOTE | 2023-08-23 13:11 | MHC.OFFVIS ---
Vital Signs 08/23/23 13:12 Height 5 ft 4 in Weight 155 lb 6 oz BMI 26.7 BP 138/65 Blood Pressure Location Lt brachial Position Sitting Respiration 18 Pulse 78 Pulse Source Pulse Oximeter Pulse Oximetry (%) 96 Oxygen Delivery Method Room Air Intake Visit Reasons: CHRONIC PAIN Allergies amoxicillin Allergy (Verified 03/22/23 21:03) Unknown erythromycin base Allergy (Verified 03/22/23 21:03) Unknown gluten Allergy (Verified 03/22/23 21:03) Unknown alex Allergy (Verified 03/22/23 21:03) Unknown peanut Allergy (Verified 03/22/23 21:03) Unknown Penicillins Allergy (Verified 03/22/23 21:03) Anaphylaxis raspberry Allergy (Verified 03/22/23 21:03) Unknown Yeast Allergy (Verified 03/22/23 21:03) Gastrointestinal Upset metoclopramide [From Reglan] Adverse Reaction (Verified 04/02/23 10:38) Shakiness zolfran Adverse Reaction (Intermediate, Uncoded 08/23/23 12:59) Palpitations HPI Comments Details: Rosa is a very pleasant 37-year-old female who presents to the office today for evaluation and management of chronic pain. 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 She has been suffering with this pain for the last 4 years. Reports it has been progressively getting worse. Describes has ?ongoing and progressing pain, stiffness and loss of mobility ?. Patient arrived with 6 page report from her EDS specialist, Ramón Lester MD, which was reviewed prior to the patient's visit. Patient's pain today is rated as a 6/10, constant and worse in the morning. Completed physical therapy 5 months ago without improvement of her pain. She has attempted chiropractor which made her symptoms worse. Patient has had 3 different types of injections but she does not remember what they were. She is currently taking baclofen 10 mg up to 3 times daily as needed for pain. Her primary care provider prescribes this medication but gives her only 15 tablets a month that she stretches out. She does get some relief with the baclofen though can only take it when her pain is severe as her quantity is limited. Was on gabapentin, had side effects so she stops taking it. She will take it as needed for severe pain. Primary care doctor prescribed tramadol in the past, patient is no longer taking it. She is not interested in opioids for her pain as she has suffered with addiction in the past. Patient is scheduled for an MRI of her neck and lower back in [place] in 1 week. She needs standing MRI per her EDS specialist. Follow-[place] with Neurosurgery [place] of state for [place] 25. In terms of muscle damage condition is described as pulsing, throbbing, pounding, stabbing, sharp, tingling, stinging, hot, burning, pinching, gripping, crushing, dull, sore, hurting, spreading, radiating, tight, squeezing. Pain is negatively impacting patient's sleep, ability to perform activities of daily living, normal function, mobility, mood and recreational activities. [facility] Medical History TIA (transient ischemic attack) Social History Substance Use Type: Marijuana Review of Systems Const All systems reviewed & are unremarkable except as noted in HPI and below Physical Exam Vital Signs: Last Vital Signs Pulse 78 08/23/23 13:12 Resp 18 08/23/23 13:12 BP 138/65 08/23/23 13:12 Pulse Ox 96 08/23/23 13:12 Oxygen Delivery Method Room Air 08/23/23 13:12 BMI result Body Mass Index 26.7 General: awake, alert, oriented. Answers questions appropriately. Fully engaged in examination. Skin: warm, dry, intact HEENT: Normocephalic. Hearing intact. Cardiac: External chest normal in appearance. Respiratory: No cough, audible wheezing or stridor. Abdomen: without gross distension. MS: No obvious swelling or deformities. Able to transition from sit to stand unassisted. Patient wearing [place] cervical collar Neurological: Oriented to person, place, time and situation. Thought process intact. Ambulates with use of Rollator walker Psychiatric: Appropriate mood and affect. Good judgment and insight. Assessment & Plan Assessment & Plan (1) Chronic pain: Code(s): G89.29 - Other chronic pain Category: Medical (2) Piotr-Danlos syndrome: Code(s): Q79.60 - Piotr-Danlos syndrome, unspecified Category: Medical Plan Patient presented to the office today for evaluation management of her diffuse chronic pain. Recommendations from patient's EDS specialist were reviewed and taken into consideration. Continue with plan for MRI and neurosurgical evaluation. Advised patient that we cannot proceed with any interventional management until after these are completed. EDS specialist does not recommend interventional procedures for treatment of her pain. There is difficulty with local anesthetic and procedural pain. Discussed this at length with the patient, after neurosurgical evaluation if there are targeted areas of treatment that she would like to try interventional pain management for we can discuss further. She is aware that it may cause her discomfort without guarantee of pain relief. Baclofen 10 mg p.o. t.i.d. as needed. Dispense number 90 tablets with 2 refills. Patient was advised on cautions for use. Amitriptyline 10 mg daily at bedtime for 1 week. Then may increase to 20 mg at bedtime. Patient advising on cautions for use. Warning to use with caution in patient's with peanut allergy d/t risk that medication may potentiate response to epinephrine with use in anaphylaxis. Patient aware of potential interaction. All questions and concerns were answered. Patient agrees to the plan. Follow-up after neurosurgical evaluation, sooner if needed Medications: New amitriptyline Take 10mg daily at bedtime for 1 week. Then may increase to 20mg daily at bedtime. 20 mg (2 x 10 mg) PO BEDTIME 60 tabs 1RF baclofen 10 mg PO TID PRN 90 tabs 2RF muscle spasm Coding Level of Care Code New Pt Level 4 (48372) Diagnoses Chronic pain G89.29 Piotr-Danlos syndrome Q79.60
[2023-08-23 13:12] VITALS: BP 138/65; PULSE 78; RESP 18; O2SAT 96; BMI 26.7
== END 2023-08-23 13:43 | disposition home or self-care (01) ==
PROVIDERS: PCP Physician Assistant; Referring Provider Physician Assistant; Visit Provider Registered Nurse Emergency
DX: G89.29 Other chronic pain (principal); Q79.60 Ehlers-Danlos syndrome, unspecified
CPT/HCPCS: 99204

== ENCOUNTER → 2023-08-23 12:29 | Outpatient (BNVA) | payer OTHER, SELFPAY | PROVIDERS: PCP Physician Assistant; Referring Provider Physician Assistant; Visit Provider Registered Nurse Emergency ==

== ENCOUNTER 2023-12-03 08:21 | Outpatient (AMB) | payer OTHER, SELFPAY ==
--- NOTE | 2023-12-03 08:28 | MHC.OFFVIS ---
Vital Signs 12/03/23 08:30 Height 5 ft 4 in Weight 140 lb BMI 24.0 BP 127/71 Blood Pressure Location Lt brachial Position Sitting Pulse 53 Pulse Source Pulse Oximeter Pulse Oximetry (%) 97 Oxygen Delivery Method Room Air Intake Visit Reasons: Chronic Pain Allergies amoxicillin Allergy (Verified 12/03/23 08:32) Unknown erythromycin base Allergy (Verified 12/03/23 08:32) Unknown gluten Allergy (Verified 12/03/23 08:32) Unknown alex Allergy (Verified 12/03/23 08:32) Unknown peanut Allergy (Verified 12/03/23 08:32) Unknown Penicillins Allergy (Verified 12/03/23 08:32) Anaphylaxis raspberry Allergy (Verified 12/03/23 08:32) Unknown Yeast Allergy (Verified 12/03/23 08:32) Gastrointestinal Upset metoclopramide [From Reglan] Adverse Reaction (Verified 12/03/23 08:32) Shakiness zolfran Adverse Reaction (Intermediate, Uncoded 12/03/23 08:32) Palpitations Medication List - Last Reconciled 12/03/23 by Zoe Lowe albuterol sulfate 90 mcg/actuation 2 puffs inhalation Q4-6H PRN baclofen 10 mg PO TID PRN 30 days famotidine 40 mg PO BID ivabradine (Corlanor) 5 mg PO BID levocetirizine (Xyzal) 5 mg PO DAILY lorazepam 1 mg PO DAILY PRN HPI Comments Details: Patient presents back to the office today for follow-up chronic pain. Since last visit she was evaluated by Neurosurgery in [place]. They are planning S1 laminectomy with laminoplasty on December 26. There is also question of a plan for C1-C2 fusion in the future. She did not think that the amitriptyline was helping. Was up to 30 mg at bedtime, recently stopped but states since then the burning pain has significantly worsened. Does find some relief with the baclofen, she would be interested in baclofen pump in the future after healed from upcoming surgery. Does have a history of chronic vomiting, would like to try liquid baclofen as an alternative as often she is vomiting of the tablet. Prior: Rosa is a very pleasant 37-year-old female who presents to the office today for evaluation and management of chronic pain. 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 She has been suffering with this pain for the last 4 years. Reports it has been progressively getting worse. Describes has ?ongoing and progressing pain, stiffness and loss of mobility ?. Patient arrived with 6 page report from her EDS specialist, Ramón Lester MD, which was reviewed prior to the patient's visit. Patient's pain today is rated as a 6/10, constant and worse in the morning. Completed physical therapy 5 months ago without improvement of her pain. She has attempted chiropractor which made her symptoms worse. Patient has had 3 different types of injections but she does not remember what they were. She is currently taking baclofen 10 mg up to 3 times daily as needed for pain. Her primary care provider prescribes this medication but gives her only 15 tablets a month that she stretches out. She does get some relief with the baclofen though can only take it when her pain is severe as her quantity is limited. Was on gabapentin, had side effects so she stops taking it. She will take it as needed for severe pain. Primary care doctor prescribed tramadol in the past, patient is no longer taking it. She is not interested in opioids for her pain as she has suffered with addiction in the past. Patient is scheduled for an MRI of her neck and lower back in [place] in 1 week. She needs standing MRI per her EDS specialist. Follow-up with Neurosurgery scheduled out of state for September 25. In terms of muscle damage condition is described as pulsing, throbbing, pounding, stabbing, sharp, tingling, stinging, hot, burning, pinching, gripping, crushing, dull, sore, hurting, spreading, radiating, tight, squeezing. Pain is negatively impacting patient's sleep, ability to perform activities of daily living, normal function, mobility, mood and recreational activities. [facility] Medical History TIA (transient ischemic attack) Social History Substance Use Type: Marijuana Review of Systems Const All systems reviewed & are unremarkable except as noted in HPI and below Physical Exam Vital Signs: Last Vital Signs Pulse 53 12/03/23 08:30 BP 127/71 12/03/23 08:30 Pulse Ox 97 12/03/23 08:30 Oxygen Delivery Method Room Air 12/03/23 08:30 BMI result Body Mass Index 24.0 General: awake, alert, oriented. Answers questions appropriately. Fully engaged in examination. Skin: warm, dry, intact HEENT: Normocephalic. Hearing intact. Cardiac: External chest normal in appearance. Respiratory: No cough, audible wheezing or stridor. Abdomen: without gross distension. MS: No obvious swelling or deformities. Able to transition from sit to stand unassisted. Patient wearing [place] cervical collar Neurological: Oriented to person, place, time and situation. Thought process intact. Ambulates with use of Rollator walker Psychiatric: Appropriate mood and affect. Good judgment and insight. Assessment & Plan Assessment & Plan (1) Chronic pain: Code(s): G89.29 - Other chronic pain Category: Medical (2) Piotr-Danlos syndrome: Code(s): Q79.60 - Piotr-Danlos syndrome, unspecified Category: Medical Plan Patient presented to the office today for follow-up chronic pain Recommendations from patient's EDS specialist were reviewed and taken into consideration. EDS specialist does not recommend interventional procedures for treatment of her pain. There is difficulty with local anesthetic and procedural pain. Plan for S1 laminectomy/laminoplasty in 1 month. Discontinue baclofen tablets. New prescription sent for baclofen liquid, 10 mg twice daily as needed Amitriptyline 50 mg p.o. q.h.s.. All questions and concerns were answered. Patient agrees to the plan. Follow-up after surgery, sooner if needed Medications: New baclofen discontinue use of baclofen tablets. 10 mg (5 mL) PO BID PRN 473 mL 3RF spasms 30 days amitriptyline 50 mg PO BEDTIME 30 tabs 3RF Coding Level of Care Code Est Pt Level 3 (52322) Diagnoses Chronic pain G89.29 Piotr-Danlos syndrome Q79.60
[2023-12-03 08:30] VITALS: BP 127/71; PULSE 53; O2SAT 97; BMI 24.0
== END 2023-12-03 08:59 | disposition home or self-care (01) ==
PROVIDERS: PCP Physician Assistant; Referring Provider Physician Assistant; Visit Provider Registered Nurse Emergency
DX: G89.29 Other chronic pain (principal); Q79.60 Ehlers-Danlos syndrome, unspecified
CPT/HCPCS: 99213

== ENCOUNTER → 2023-12-03 08:21 | Outpatient (BNVA) | payer OTHER, SELFPAY | PROVIDERS: PCP Physician Assistant; Referring Provider Physician Assistant; Visit Provider Registered Nurse Emergency ==